=== PATIENT | female | born 1955 | race African-American/Black ===

== ENCOUNTER 2016-10-27 12:08 | Emergency (ER) | payer MEDICAID ==
[~2016-10-27] VITALS: Ht 162.6 cm; Wt 48.5 kg
[~2016-10-27 12:08] MED LIST: CIPRO500 MG PO; COLACE100 MG ORAL; IBUPROFEN600 MG ORAL; IBUPROFEN600 MG PO; NORCO 5-325 TA1 EACH ORAL; SOMA350 MG PO; TRAMADOL HCL50 MG ORAL; VALIUM5 MG PO; VICODIN 5-5001 EACH PO; VICOPROFEN 2001 EACH ORAL
[2016-10-27] MEDS ORDERED: ACETAMINOPHEN-1 EAC1 ORAL (12:58)
[2016-10-27] MEDS ORDERED: Tylenol #3 tab (300mg/30mg) ORAL ONE (13:00)
[2016-10-27 13:17] VITALS: BP 112/72
[2016-10-27 13:24] VITALS: BP 112/72
--- NOTE | 2016-10-27 19:35 | Emergency Room Report ---
History of Present Illness General Chief Complaint: Pain Source: Patient Present Illness HPI The patient is a 61-year-old female presenting for right elbow pain for the past 2 months. She denies any known reason for the pain including any injuries. Pain is described as a 7/10 dull ache and does not radiate. It is worse with movement and touch. She denies any swelling. She denies numbness or tingling. She denies other symptoms including nausea, vomiting, fever, chills, rash Allergies: Coded Allergies: IODINE (Verified Allergy, Severe, 07/28/13) SULFA (SULFONAMIDE ANTIBIOTICS) (Verified Allergy, Severe, 07/28/13) AMOXICILLIN (Verified Allergy, Unknown, 11/20/15) Patient History Past Medical History: see triage record Pertinent Family History: none Reviewed Nursing Documentation: PMH: Agreed, PSxH: Agreed Nursing Documentation-PMH Past Medical History: No History, Except For Hx Hypertension: Yes Hx Pacemaker: No Hx Asthma: No Hx COPD: No Hx Diabetes: No Hx Cancer: No Hx Gastrointestinal Problems: No Hx Dialysis: No Hx Neurological Problems: Yes - disc Hx Cerebrovascular Accident: No Hx Seizures: No Review of Systems All Other Systems: negative except mentioned in HPI Physical Exam Vital Signs Date Time Temp Pulse Resp B/P Pulse Ox O2 Delivery O2 Flow Rate FiO2 10/27/16 12:26 98.2 81 16 111/77 96 Room Air Sp02 EP Interpretation: reviewed, normal General Appearance: no apparent distress, alert, GCS 15, non-toxic Head: normocephalic, atraumatic Eyes: bilateral eye PERRL, bilateral eye normal inspection Musculoskeletal: normal inspection, normal range of motion, tender - TTP over the R epicondyle Neurologic: alert, oriented x3, responsive, motor strength/tone normal, sensory intact, speech normal Psychiatric: judgement/insight normal, memory normal, mood/affect normal, no suicidal/homicidal ideation Skin: normal color, no rash, warm/dry, well hydrated Lymphatic: no adenopathy Procedures Splinting Splinting : Consent: Verbal Location: R arm Pre-Made Type: sling Pre-Proc Neuro Vasc Exam: normal Post-Proc Neuro Vasc Exam: normal Patient Tolerated: Well Complications: None Medical Decision Making PA Attestation Dr. Gambino is my supervising physician. Patient management was discussed with my supervising physician Diagnostic Impression: Primary Impression: Right elbow tendinitis ER Course The patient is a 61-year-old female presenting for right elbow pain Ddx considered include but not limited to sprain/strain, fracture, contusion, tendinitis, gout, among others Physical exam: Afebrile. No apparent distress Right elbow: Full active range of motion. No edema. No obvious deformity. There is tenderness to palpation over the right epicondyle. Pain worsened with wrist extension A sling is placed over the right arm and the patient will be given pain medication. RICE instructions given. ER precautions given Chest X-Ray Diagnostic Results Chest X-Ray Ordered: No Last Vital Signs Date Time Temp Pulse Resp B/P Pulse Ox O2 Delivery O2 Flow Rate FiO2 10/27/16 13:24 98.2 80 16 112/72 98 Room Air Status: improved Disposition: HOME, SELF-CARE Condition: Improved Scripts Acetaminophen With Codeine (T#3) (TYLENOL #3 TAB*) Y Tab 1 TAB ORAL Q6HR Y for For Pain, #10 TAB Prov: MARVEL ACUNA 10/27/16 Referrals: [facility] (PCP) Patient Instructions: Tennis Elbow Additional Instructions: I discussed my findings with the patient. All questions and concerns have been answered. Treatment and medication compliance have been addressed. I advised the patient that they need to follow up with PMD in 3-5 days. Return to ED if pain remains or worsens, numbness or tingling occurs, new rash is noticed, fever is noticed, or if needed for any reason. Patient verbalized understanding of discharge instructions. MARVEL ACUNA Oct 27, 2016 19:35
== END 2016-10-27 13:24 | disposition home or self-care (01) ==
LOC: EMR 12:41
DX: M77.9 Enthesopathy, unspecified (principal); Z88.0 Allergy status to penicillin; Z88.2 Allergy status to sulfonamides; I10 Essential (primary) hypertension; Z86.69 Personal history of other diseases of the nervous system and sense organs; M25.521 Pain in right elbow
CPT/HCPCS: 29240; 99283

== ENCOUNTER 2019-12-15 17:55 | Emergency (ER) | payer MEDICARE, MEDICAID ==
[~2019-12-15] VITALS: Ht 162.6 cm; Wt 50.3 kg
[~2019-12-15 17:55] MED LIST changes: +ACETAMINOPHEN-1 EAC1 ORAL
[2019-12-15 18:15] VITALS: BP 148/98
[2019-12-15 18:34] LABS: BASOPHILS % (AUTO) 1.2 % (0.0-2.0); EOSINOPHILS % (AUTO) 0.5 % (0.0-3.0); HEMATOCRIT 40.3 % (37.0-47.0); HEMOGLOBIN 13.1 G/DL (12.0-16.0); LYMPHOCYTES % (AUTO) 42.8 % (20.0-45.0); MEAN CORPUSCULAR VOLUME 93 FL (80-99); MONOCYTES % (AUTO) 7.3 % (1.0-10.0); NEUTROPHILS % (AUTO) 48.2 % (45.0-75.0); PLATELET COUNT 236 K/UL (150-450); RED BLOOD COUNT 4.35 M/UL (4.20-5.40); RED CELL DISTRIBUTION WIDTH 13.9 % (11.6-14.8); WHITE BLOOD COUNT 6.9 K/UL (4.8-10.8)
[2019-12-15 18:35] LABS: APPEARANCE,URINE SLIGHTLY CLOUDY; BILIRUBIN, URINE NEGATIVE (NEGATIVE); COLOR,URINE YELLOW; GLUCOSE, URINE (UA) NEGATIVE (NEGATIVE); KETONES,URINE 1+ (NEGATIVE); LEUKOCYTE ESTERASE ,URINE 1+ (NEGATIVE); NITRITE,URINE NEGATIVE (NEGATIVE); PH,URINE 5 (4.5-8.0); PROTEIN,URINE 2+ (NEGATIVE); UROBILINOGEN,URINE 1 MG/DL (0.0-1.0)
[2019-12-15 18:41] LABS: ANION GAP 8 mmol/L (5-15); BLOOD UREA NITROGEN 17 mg/dL (7-18); CALCIUM 9.4 MG/DL (8.5-10.1); CARBON DIOXIDE 29 MMOL/L (21-32); CHLORIDE 104 MMOL/L (98-107); CREATININE 1.1 MG/DL (0.55-1.30); POTASSIUM 3.1 MMOL/L (3.5-5.1); SODIUM 141 MMOL/L (136-145)
[2019-12-15 18:45] LABS: ALANINE AMINOTRANSFERASE 8 U/L (12-78); ALBUMIN 4.4 G/DL (3.4-5.0); ALKALINE PHOSPHATASE 100 U/L (46-116); ASPARTATE AMINO TRANSFERASE 15 U/L (15-37); BILIRUBIN,TOTAL 0.3 MG/DL (0.2-1.0); CREATINE KINASE 95 U/L (26-308)
[2019-12-15] MEDS ORDERED: Methocarbamol 750mg tab ORAL ONE (18:45)
[2019-12-15] MEDS ORDERED: Ketorolac 30mg Inj IV ONE (18:45)
--- NOTE | 2019-12-15 18:50 | Emergency Room Report ---
History of Present Illness General Chief Complaint: Lower Back Pain or Injury Source: Patient Present Illness HPI 64-year-old female with no significant past medical history here complaining of 1 week of right-sided low back pain and hip pain. Also complaining of pain right in the inguinal fold on the right side which is unrelated to her low back pain. Denies any fall or injury. Reports that she often handles her grandchildren and lifts heavy objects. Denies any urinary bowel incontinence. Denies saddle paresthesia, tingling numbness. Denies pain radiation. Rates the pain 7 out of 10 at this time. Reports the pain is worse when changing the position from sitting to standing to lying down. Has taken Tylenol for pain relief with minimal relief. Denies any fall or injury. Denies head injury or loss of consciousness. Denies any urinary frequency and urgency. Denies hematuria. Denies diffuse abdominal pain, nausea or vomiting. Denies chest pain shortness of breath. Patient is neurovascularly intact. Patient also said she takes [place] for chronic back pain every now and then. Allergies: Coded Allergies: IODINE (Verified Allergy, Severe, 07/28/13) SULFA (SULFONAMIDE ANTIBIOTICS) (Verified Allergy, Severe, 07/28/13) AMOXICILLIN (Verified Allergy, Unknown, 11/20/15) COVID-19 Screening Contact w/high risk pt: No Experienced COVID-19 symptoms?: No COVID-19 Testing performed FUR NAILER: No Patient History Past Medical History: see triage record Past Surgical History: none Pertinent Family History: none Now: No Immunizations: UTD Reviewed Nursing Documentation: PMH: Agreed; PSxH: Agreed Nursing Documentation-PMH Past Medical History: No History, Except For Hx Hypertension: Yes Hx Pacemaker: No Hx Asthma: No Hx COPD: No Hx Diabetes: No Hx Cancer: No Hx Gastrointestinal Problems: No Hx Dialysis: No Hx Neurological Problems: Yes - disc Hx Cerebrovascular Accident: No Hx Seizures: No Review of Systems All Other Systems: negative except mentioned in HPI Physical Exam Vital Signs Date Time Temp Pulse Resp B/P (MAP) Pulse Ox O2 Delivery O2 Flow Rate FiO2 12/15/19 17:58 99.0 84 18 148/98 (115) 96 Room Air Sp02 EP Interpretation: reviewed, normal General Appearance: no apparent distress, alert, GCS 15, non-toxic Head: normocephalic, atraumatic Eyes: bilateral eye normal inspection, bilateral eye PERRL ENT: hearing grossly normal, normal pharynx, no angioedema, normal voice Neck: full range of motion, supple/symm/no masses Respiratory: chest non-tender, lungs clear, normal breath sounds, no rhonchi, no retraction, speaking full sentences Cardiovascular #1: regular rate, rhythm, no edema, no murmur Cardiovascular #2: 2+ femoral (R), 2+ femoral (L), 2+ dorsalis pedis (R), 2+ dorsalis pedis (L) Gastrointestinal: normal bowel sounds, non tender, soft, non-distended, no guarding, no rebound Rectal: deferred Genitourinary: no CVA tenderness Musculoskeletal: back normal, no calf tenderness, pelvis stable, no lower extremity edema, non-tender Neurologic: alert, oriented, oriented x3, sensory intact Psychiatric: judgement/insight normal, memory normal, mood/affect normal, no suicidal/homicidal ideation Skin: no rash Lymphatic: no adenopathy Medical Decision Making PA Attestation Diagnosis and treatment plans were reviewed and discussed with my supervising physician Dr. Jennings Diagnostic Impression: Primary Impression: Lumbar disc disease ER Course 64-year-old female with no significant past medical history here complaining of 1 week of right-sided low back pain and hip pain. Also complaining of pain right in the inguinal fold on the right side which is unrelated to her low back pain. Denies any fall or injury. Reports that she often handles her grandchildren and lifts heavy objects. Denies any urinary bowel incontinence. Denies saddle paresthesia, tingling numbness. Denies pain radiation. Rates the pain 7 out of 10 at this time. Reports the pain is worse when changing the position from sitting to standing to lying down. Has taken Tylenol for pain relief with minimal relief. Denies any fall or injury. Denies head injury or loss of consciousness. Denies any urinary frequency and urgency. Denies hematuria. Denies diffuse abdominal pain, nausea or vomiting. Denies chest pain shortness of breath. Patient is neurovascularly intact. Patient also said she takes [place] for chronic back pain every now and then. Ddx considered but are not limited to: Hip fracture, inguinal hernia, arthritis , lumbar spine sprain, strain, fracture, contusion, neuropathy Vital signs: are WNL, pt. is afebrile H&PE are most consistent with: lumbar disc disease ORDERS: Lumbar spine x-ray, CT pelvis no contrast, CBC, CMP, UA, tox screen, lipase, motrin, lidocaine patch, robaxin ER intervention: Toradol, lidocaine patch, Robaxin DISCHARGE: At this time pt. is stable for d/c to home. Will provide printed patient care instructions, and any necessary prescriptions. Care plan and follow up instructions have been discussed with the patient prior to discharge. Take medication as directed, follow-up referral to care specialist may be needed, if worsening symptoms return to the emergency room Other X-Ray Diagnostic Results Other X-Ray Diagnostic Results : X-Ray ordered: L-spine # of Views/Limited Vs Complete: 3 View Indication: Pain EP Interpretation: Yes PA Xray: Interpretation reviewed, by supervising MD, and agrees with findings. Interpretation: no dislocation, no soft tissue swelling, no fractures Impression: No acute disease Electronically Signed by: Shalom Aguero PA-C CT/MRI/US Diagnostic Results CT/MRI/US Diagnostic Results : Imaging Test Ordered: CT pelvis no contrast Impression FINDINGS: Gallbladder and bile ducts: Probable prior cholecystectomy. Kidneys and ureters: Left renal cysts with calcifications partially visualized. Bowel: Unremarkable. No obstruction. No mucosal thickening. Appendix: No findings to suggest acute appendicitis. Intraperitoneal space: Unremarkable. No free air. No significant fluid collection. Bladder: Underdistended bladder which limits evaluation. No stones. Reproductive: Unremarkable as visualized. Bones/joints: No acute fracture or dislocation identified. Prominent disc bulge at L4-5 which causes moderate to severe spinal canal stenosis. Evaluation of the neural foramina cannot be performed as it is out of the field of view. Moderate severe right and moderate left neural foraminal stenoses at L5-S1. Further evaluation could be performed with MRI lumbar spine. Mild retrolisthesis of L5 on S1. Soft tissues: Unremarkable. Vasculature: Phleboliths in the pelvis. No lower abdominal aortic aneurysm. Lymph nodes: Unremarkable. No enlarged lymph nodes. IMPRESSION: 1. No acute fracture or dislocation identified. 2. Prominent disc bulge at L4-5 which causes moderate to severe spinal canal stenosis. Evaluation of the neural foramina cannot be performed as it is out of the field of view. Severe right and moderate left neural foraminal stenoses at L5-S1. Further evaluation could be performed with MRI lumbar spine. Last Vital Signs Date Time Temp Pulse Resp B/P (MAP) Pulse Ox O2 Delivery O2 Flow Rate FiO2 12/15/19 18:15 99.0 88 18 148/98 96 Room Air Disposition: HOME, SELF-CARE Condition: Stable Referrals: NON PHYSICIAN (PCP) Additional Instructions: Take medication as directed, follow-up referral to care specialist may be needed, if worsening symptoms return to the emergency room Shalom Thompson Dec 15, 2019 18:50
--- NOTE | 2019-12-15 19:18 | Diagnostic Imaging Report ---
EXAM: CT Pelvis Without Intravenous Contrast CLINICAL HISTORY: PAIN TECHNIQUE: Axial computed tomography images of the pelvis without intravenous contrast. CTDI is 4.0 mGy and DLP is 139.5 mGy-cm. One or more of the following dose reduction techniques were used: automated exposure control, adjustment of the mA and/or kV according to patient size, use of iterative reconstruction technique. COMPARISON: CT abdomen/pelvis on 10/23/2013 FINDINGS: Gallbladder and bile ducts: Probable prior cholecystectomy. Kidneys and ureters: Left renal cysts with calcifications partially visualized. Bowel: Unremarkable. No obstruction. No mucosal thickening. Appendix: No findings to suggest acute appendicitis. Intraperitoneal space: Unremarkable. No free air. No significant fluid collection. Bladder: Underdistended bladder which limits evaluation. No stones. Reproductive: Unremarkable as visualized. Bones/joints: No acute fracture or dislocation identified. Prominent disc bulge at L4-5 which causes moderate to severe spinal canal stenosis. Evaluation of the neural foramina cannot be performed as it is out of the field of view. Moderate severe right and moderate left neural foraminal stenoses at L5-S1. Further evaluation could be performed with MRI lumbar spine. Mild retrolisthesis of L5 on S1. Soft tissues: Unremarkable. Vasculature: Phleboliths in the pelvis. No lower abdominal aortic aneurysm. Lymph nodes: Unremarkable. No enlarged lymph nodes. IMPRESSION: 1. No acute fracture or dislocation identified. 2. Prominent disc bulge at L4-5 which causes moderate to severe spinal canal stenosis. Evaluation of the neural foramina cannot be performed as it is out of the field of view. Severe right and moderate left neural foraminal stenoses at L5-S1. Further evaluation could be performed with MRI lumbar spine.
[2019-12-15] MEDS ORDERED: IBUPROFEN600 M1 ORAL (19:24)
[2019-12-15] MEDS ORDERED: ROBAXIN-500MG ORAL (19:24)
[2019-12-15] MEDS ORDERED: LIDODERM700 M1 TOPIC (19:24)
[2019-12-15 19:30] VITALS: BP 148/98
--- NOTE | 2019-12-16 10:14 | Diagnostic Imaging Report ---
EXAM: X-RAY [facility]RAY [facility] CLINICAL HISTORY: Back pain. COMPARISON: None FINDINGS: Total of 3 views of the lumbar spine were obtained. Alignment is anatomic. There is no fracture, bony lesions or erosions. Mild disc space narrowing noted at several levels. There is minimal spurring. Surrounding soft tissue is normal. IMPRESSION: MILD DEGENERATIVE CHANGES. NO ACUTE BONY ABNORMALITY.
== END 2019-12-15 19:30 | disposition home or self-care (01) ==
LOC: EMR 18:12
DX: M51.36 Other intervertebral disc degeneration, lumbar region (principal); I10 Essential (primary) hypertension; Z88.2 Allergy status to sulfonamides; Z88.0 Allergy status to penicillin; Z91.041 Radiographic dye allergy status; M25.551 Pain in right hip
CPT/HCPCS: 36415; 72020; 72192; 80053; 80307; 81003; 82550; 83690; 85025; 96374; 99284; J1885